=== PATIENT | female | born 1980 | race African-American/Black ===

== ENCOUNTER 2017-08-08 23:13 | Emergency (ER) | payer OTHER ==
[~2017-08-08] VITALS: Ht 170.2 cm; Wt 78.0 kg
[~2017-08-08 23:13] MED LIST: AMOXIL500 MG PO; ENDOCET 325 MG-1 TA1 PO; METFORMIN HCL500 M3; MOTRIN800 MG PO; PANTOPRAZOLE SO40 M1; PENICILLIN V P250 M1; VICODIN 5-3001 EACH PO
[2017-08-09 00:39] VITALS: BP 111/76
[2017-08-09 00:55] LABS: ABSOLUTE BASOPHIL COUNT 0 /CUMM (0.0-0.2); ABSOLUTE EOSINOPHIL COUNT 0.1 /CUMM (0.0-0.7); ABSOLUTE GRANULOCYTE CT 4.3 /CUMM (1.4-6.5); ABSOLUTE LYMPH COUNT 2.3 /CUMM (1.2-3.4); ABSOLUTE MONOCYTE COUNT 0.8 /CUMM (0.10-0.60); BASOPHIL % 0.4 % (0.0-2.0); EOSINOPHIL % 1.8 % (0-5); GRANULOCYTE % 57.2 % (42.2-75.2); HEMATOCRIT 38.3 % (37-47); MEAN CORPUSCULAR HGB 26.7 PG (27.0-31.0); MEAN CORPUSCULAR HGB CONC 32.9 G/DL (33.0-37.0); MEAN CORPUSCULAR VOLUME 81.2 FL (81.0-99.0); MEAN PLATELET VOLUME 8.2 FL (7.4-10.4); PLATELET COUNT 246 /CUMM (130-400); RED BLOOD CELL CT 4.72 /CUMM (4.20-5.40); WHITE BLOOD CELL COUNT 7.5 /CUMM (4.8-10.8)
--- NOTE | 2017-08-09 01:18 | ED CARDIAC/CP/PALPITATIONS ---
History of Present Illness General Chief Complaint: Chest Pain Stated Complaint: "CP" Source: patient Exam Limitations: no limitations Vital Signs & Intake/Output Vital Signs & Intake/Output Vital Signs Date Time Temp Pulse Resp B/P B/P Pulse O2 O2 Flow FiO2 Mean Ox Delivery Rate 08/09 0043 98 Room Air 08/09 0039 98.6 82 18 111/76 98 Room Air Allergies Coded Allergies: MDX - Ceftriaxone (From ROCEPHIN) (NAUSEA 08/09/17) MDX - Clindamycin (CLINDAMYCIN) (RASH 08/09/17) Reconcile Medications Metformin HCl (Unknown Strength) TABLET (Unknown Dose) DIABETES (Reported) Pantoprazole Sodium (Unknown Strength) TABLET.DR (Unknown Dose) GERD ( Reported) Triage Note: TRIAGE: BIBA FROM HOME REPORTING CHEST ACHING X 3 DAYS, DENIES SOB/N/V/DIZZINESS. PATIENT REPORTS HX OF SAME PAIN WITH PAST , STATES +CHANCE OF . ALSO REPORTS HX ANXIETY Triage Nurses Notes Reviewed? yes : No Patient currently breastfeeds: No HPI: Patient presents to the emergency department with substernal chest pressure radiating to the left arm that has been there for the past 3 days. The symptoms wax and wane in intensity but she denies them ever being on. She states that it goes anywhere from 3/10 to as high as a 7/10. Patient states that she has been under a lot of stress lately. Patient states that tonight the symptoms just got worse was decided to come in for evaluation. Patient denies any shortness of breath. There are no aggravating or mitigating factors. Past History Travel History Traveled to [place] past 21 day No Medical History Any Pertinent Medical History? 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 No Review of Systems Review of Systems Constitutional: Reports: no symptoms. EENTM: Reports: no symptoms. Respiratory: Reports: no symptoms. Cardiovascular: Reports: see HPI, chest pain. GI: Reports: no symptoms. Genitourinary: Reports: no symptoms. Musculoskeletal: Reports: no symptoms. Skin: Reports: no symptoms. Neurological/Psychological: Reports: no symptoms. Hematologic/Endocrine: Reports: no symptoms. Immunologic/Allergic: Reports: no symptoms. All Other Systems: Reviewed and Negative Physical Exam Physical Exam General Appearance: well developed/nourished, alert, awake, anxious, mild distress Head: atraumatic, normal appearance Eyes: Bilateral: PERRL, EOMI. Ears, Nose, Throat: normal pharynx, normal ENT inspection, hearing grossly normal Neck: normal inspection, supple, full range of motion Respiratory: normal breath sounds, chest non-tender, no respiratory distress, lungs clear Cardiovascular: regular rate/rhythm, normal peripheral pulses Gastrointestinal: normal bowel sounds, soft, non-tender, no organomegaly Back: normal inspection, normal range of motion Extremities: normal inspection, normal capillary refill, normal range of motion, no edema Neurologic/Psych: no motor/sensory deficits, awake, alert, oriented x 3, normal gait, normal mood/affect Skin: intact, normal color, warm/dry Core Measures ACS in differential dx? Yes CVA/TIA Diagnosis No Sepsis Present: No Sepsis Focused Exam Completed? No All Positive = PERC Ruled Out: Positive: age < 50 years, heart rate < 100 bpm, O2 sat > 94%, no hemoptysis, no hormone use, no prior DVT or PE, no unilateral leg swellin, no surgery/trauma w/ in 4w. Wells Criteria Score: 0 Progress Differential Diagnosis: AMI, atrial fibrillation, cholecystitis, costochondritis , musculoskeletal pain, myocarditis, pericarditis, pneumonia, pneumothorax, pulmonary embolism Plan of Care: Orders Procedure Date/time Status Add-on Test (ER Only) 08/09 0117 Active D-DIMER 08/09 0050 Complete TROPONIN LEVEL 08/09 0044 Complete COMPREHENSIVE METABOLIC PANEL 08/09 0044 Complete CBC WITHOUT DIFFERENTIAL 08/09 0044 Complete URINE 08/08 2335 Complete URINALYSIS 08/08 2335 Complete EKG 08/08 2326 Active Laboratory Tests 08/09/17 0050: Anion Gap 12, Estimated GFR > 60, BUN/Creatinine Ratio 30.0 H, Glucose 140 H, Calcium 9.4, Total Bilirubin 0.5, AST 15, ALT 20, Alkaline Phosphatase 82, Troponin I < 0.01, Total Protein 7.0, Albumin 4.0, Globulin 3.0, Albumin/ Globulin Ratio 1.3, D-Dimer High Sensitivty < 200, CBC w Diff NO MAN DIFF REQ, RBC 4.72, MCV 81.2, MCH 26.7 L, MCHC 32.9 L, RDW 14.0, MPV 8.2, Gran % 57.2, Lymphocytes % 30.0, Monocytes % 10.6 H, Eosinophils % 1.8, Basophils % 0.4, Absolute Granulocytes 4.3, Absolute Lymphocytes 2.3, Absolute Monocytes 0.8 H, Absolute Eosinophils 0.1, Absolute Basophils 0 08/09/17 0005: Urinalysis LIGHT H, Urine Color YEL, Urine Clarity CLEAR, Urine pH 6.0, Ur Specific [place] >= 1.030, Urine Protein 30 H, Urine Ketones NEG, Urine Nitrite NEG, Urine Bilirubin NEG, Urine Urobilinogen 0.2, Ur Leukocyte Esterase NEG, Ur Microscopic SEDIMENT EXAMINED, Urine RBC 1-3, Ur Epithelial Cells FEW, Urine Crystals 3+ CA OX H, Urine Bacteria MANY H, Urine Hemoglobin NEG, Urine Glucose NEG, Urine Test NEGATIVE Diagnostic Imaging: Viewed by Me: Radiology Read. Discussed w/RAD: Radiology Read. CXR Impression: PATIENT: DEAN STANLEY PRESENT AGE: 36 PATIENT ACCOUNT NO: [id number] : 81 LOCATION: [facility] [place] ORDERING PHYSICIAN: Jovi Cortez MD SERVICE DATE: 08/09/17 EXAM TYPE: RAD - XRY-CHEST XRAY, TWO VIEWS EXAMINATION: XR CHEST CLINICAL INFORMATION: Chest pain COMPARISON: 07/06/2015 TECHNIQUE: 2 views of the chest were obtained. FINDINGS: Lung volumes are low with mild bronchovascular crowding. There is no focal consolidation, edema, or effusion. No pneumothorax. The cardiomediastinal silhouette is within normal limits. No acute osseous abnormality. IMPRESSION: No acute pulmonary findings. 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 <Electronically signed in Other Vendor System> SIGNED BY: Quang Grajeda MD 08/09/17224 Initial ED EKG: NSR, no ST T wave changes, NO OLDTO COMPARE Rhythm Strip: normal sinus rhythm Comments: Pain is been present for 3 days constant. Departure Departure Disposition: HOME OR SELF CARE Condition: Stable Clinical Impression Primary Impression: Chest pain, unspecified Secondary Impressions: Hyperglycemia Referrals: Kaitlin Hodge APRN (PCP/Family) Aixa LAZO,Omer Chen Additional Instructions: FOLLOW UP WITH DR. HEREDIA RETURN IF SYMPTOMS WORSEN OR FOR ANY CONCERNS Departure Forms: Customer Survey General Discharge Information Critical Care Note Critical Care Note Critical Care Time: non-applicable
--- NOTE | 2017-08-09 02:25 | RADIOLOGY REPORT ---
EXAMINATION: XR CHEST CLINICAL INFORMATION: Chest pain COMPARISON: 07/06/2015 TECHNIQUE: 2 views of the chest were obtained. FINDINGS: Lung volumes are low with mild bronchovascular crowding. There is no focal consolidation, edema, or effusion. No pneumothorax. The cardiomediastinal silhouette is within normal limits. No acute osseous abnormality. IMPRESSION: No acute pulmonary findings.
== END 2017-08-09 03:20 ==
LOC: ERH 23:13
PROVIDERS: Emergency Medicine
DX: R07.89 Other chest pain (principal); R73.9 Hyperglycemia, unspecified
CPT/HCPCS: 71046; 81001; 81025; 93005; 93010

== ENCOUNTER 2017-12-29 22:27 | Emergency (ER) | payer OTHER ==
[~2017-12-29] VITALS: Ht 170.2 cm; Wt 90.7 kg
[2017-12-30] MEDS ORDERED: CITALOPRAM HBR10 MG PO (01:30)
[2017-12-30] MEDS ORDERED: XANAX0.5 M1 PO (01:30)
--- NOTE | 2017-12-30 01:32 | ED PSYCHIATRIC COMPLAINT ---
History of Present Illness General Chief Complaint: General Adult Stated Complaint: "PANIC ATTACK, I'M OFF MY MEDS" CP Source: patient, old records Exam Limitations: no limitations Vital Signs & Intake/Output Vital Signs & Intake/Output Vital Signs Date Time Temp Pulse Resp B/P B/P Pulse O2 O2 Flow FiO2 Mean Ox Delivery Rate 12/30 0145 98.2 88 16 122/84 98 Room Air 12/30 0034 98 Room Air 12/29 2249 98.1 92 18 124/88 98 Room Air ED Intake and Output 12/30 0000 12/29 1200 Intake Total Output Total Balance Patient 200 lb Weight Weight Reported by Patient Measurement Method Allergies Coded Allergies: MDX - Ceftriaxone (From ROCEPHIN) (NAUSEA 08/09/17) MDX - Clindamycin (CLINDAMYCIN) (RASH 08/09/17) Reconcile Medications Alprazolam (Xanax) 0.5 MG TABLET 1 TAB PO TIDPRN PRN panic attack May repeat in 45 minutes if no effect Citalopram Hydrobromide (Citalopram HBr) 10 MG TABLET 1 TAB PO DAILY panic disorder Metformin HCl (Unknown Strength) TABLET (Unknown Dose) DIABETES (Reported) Pantoprazole Sodium (Unknown Strength) TABLET.DR (Unknown Dose) GERD ( Reported) Triage Note: PT TO ED C/O SEVERE PANIC ATTACK. STATES RAN OUT OF MEDS A MONTH AGO, STATES DOES NOT REMEMBER WHAT THE MEDICATION WAS. 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 I KNOW IT'S MY ANXIETY BUT I HAD TO COME IN AND GET CHECKED OUT" PT WITH MULTIPLE COMPLAINTS: TINGELING, CHEST PAIN, L BREAST FEELS HEAVY, BACK PAIN Triage Nurses Notes Reviewed? yes Onset: Just prior to arrival Duration: minute(s):, constant, continues in ED Timing: recent history Severity: severe Associated Symptoms: anxiety, impaired concentration LMP (ages 10-50): unknown : No Patient currently breastfeeds: No HPI: Prior to admission patient reports she's been under a lot of stress developed shortness of breath palpitations chest pain anxiety and now resolved. She denies fever chills nausea vomiting diarrhea abdominal pain headache dysuria rash bleeding. She reports running out of her citalopram and called her doctor's office with no response for refill. Past History Travel History Traveled to [place] past 21 day No Medical History Any Pertinent Medical History? 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 No Review of Systems Review of Systems Constitutional: Reports: no symptoms. EENTM: Reports: no symptoms. Respiratory: Reports: no symptoms. Cardiovascular: Reports: no symptoms. GI: Reports: no symptoms. Genitourinary: Reports: no symptoms. Musculoskeletal: Reports: no symptoms. Skin: Reports: no symptoms. Neurological/Psychological: Reports: see HPI, anxiety. Hematologic/Endocrine: Reports: no symptoms. Immunologic/Allergic: Reports: no symptoms. All Other Systems: Reviewed and Negative Physical Exam Physical Exam General Appearance: well developed/nourished, alert, awake, anxious, mild distress Head: atraumatic Eyes: Bilateral: PERRL, EOMI. Ears, Nose, Throat: normal pharynx, normal ENT inspection, hearing grossly normal Neck: normal inspection, supple Respiratory: normal breath sounds Cardiovascular: regular rate/rhythm Gastrointestinal: soft, non-tender Extremities: normal range of motion Neurological/Psychiatric: no motor/sensory deficits, awake, agitated, alert, normal mood/affect, relays draftsperson II-XII nml as tested, oriented x 3 Appearance/Memory/Insight: impaired insight Behavoir/Eye Contact/Speech: cooperative, normal speech Thoughts/Hallucinations: no apparent hallucination Skin: intact, normal color, warm/dry SAD PERSONS Done? patient not suicidal Progress Differential Diagnosis: drug intoxication, drug overdose, drug withdrawal, electrolyte abnormality, hypoglycemia Plan of Care: Orders Procedure Date/time Status EKG 12/29 2228 Active Departure Departure Time of Disposition: 127 Disposition: HOME OR SELF CARE Condition: Stable Clinical Impression Primary Impression: Panic attack Referrals: Kaitlin Hodge APRN (PCP/Family) Departure Forms: Customer Survey General Discharge Information Prescriptions: Current Visit Scripts Citalopram Hydrobromide (Citalopram HBr) 1 TAB PO DAILY #30 TAB Ref 2 Alprazolam (Xanax) 1 TAB PO TIDPRN PRN panic attack #30 TAB May repeat in 45 minutes if no effect
[2017-12-30 01:45] VITALS: BP 122/84
== END 2017-12-30 01:49 ==
LOC: ERH 22:27
DX: F41.0 Panic disorder [episodic paroxysmal anxiety] (principal); F17.210 Nicotine dependence, cigarettes, uncomplicated; F41.9 Anxiety disorder, unspecified; F10.10 Alcohol abuse, uncomplicated
CPT/HCPCS: 93005; 93010